=== PATIENT | female | born 1960 | race Caucasian/White ===

== ENCOUNTER 2018-12-25 03:18 | Emergency (ER) | payer OTHER ==
[~2018-12-25] VITALS: Ht 172.7 cm; Wt 108.9 kg
[2018-12-25] MEDS ORDERED: FAMOTIDINE 20 MG/2 ML VIAL IV STA (03:19)
[2018-12-25] MEDS ORDERED: DIPHENHYDRAMINE HCL INJ 50 MG/ML VIAL ONE (03:28)
[2018-12-25] MEDS ORDERED: SODIUM CHLORIDE 0.9% 1000ML 1,000 ML ONE (03:28)
[2018-12-25] MEDS ORDERED: FAMOTIDINE 20 MG/2 ML VIAL IV ONE (03:29)
[2018-12-25] MEDS ORDERED: METHYLPREDNISOLONE SOD SUCC 125 MG/2ML VIAL IV ONE (03:30)
[2018-12-25] MEDS ORDERED: DIPHENHYDRAMINE HCL INJ 50 MG/ML VIAL IV ONE (03:30)
[2018-12-25 03:51] LABS: BASOPHILS % 0.3 % (0.0-1.0); EOSINOPHILS # (AUTO) 0.3 (0.0-0.4); EOSINOPHILS % 2.8 % (0.0-6.0); HEMATOCRIT 42.1 % (34.2-44.1); LYMPHOCYTES # (AUTO) 3.6 (1.0-3.2); LYMPHOCYTES % 30.2 % (18.0-39.1); MEAN CORPUSCULAR HEMOGLOBIN 30.7 pg (28-32); MEAN CORPUSCULAR HGB CONC 33.3 g/dL (31-35); MEAN CORPUSCULAR VOLUME 92.3 fL (81-99); MONOCYTES # (AUTO) 0.8 (0.2-0.8); MONOCYTES % 6.6 % (4.4-11.3); NEUTROPHILS # (AUTO) 7.1 (2.1-6.9); NEUTROPHILS % 59.8 % (38.7-80.0); PLATELET COUNT 294 x10e3/uL (140-360); RED BLOOD COUNT 4.56 x10e6/uL (3.6-5.1); RED CELL DISTRIBUTION WIDTH 12.6 % (11.7-14.4)
[2018-12-25 04:04] LABS: INR 0.84; PARTIAL THROMBOPLASTIN TIME 26.9 seconds (23.8-35.5)
[2018-12-25 04:06] LABS: BACTERIA,URINE MANY /HPF; BILIRUBIN,URINE NEGATIVE (NEGATIVE); CLARITY,URINE CLOUDY (CLEAR); COLOR,URINE YELLOW (YELLOW); EPITHELIAL CELLS,URINE FEW /LPF; KETONES,URINE NEGATIVE (NEGATIVE); LEUKOCYTE ESTERASE ,URINE 2+ (NEGATIVE); NITRITE,URINE NEGATIVE (NEGATIVE); PROTEIN,URINE DIPSTICK NEGATIVE (NEGATIVE); RENAL EPITHELIAL CELLS,URINE FEW; TRANSITIONAL EPI CELLS,URINE FEW; URINE UROBILINOGEN 0.2 mg/dL (0.2 - 1); WBC,URINE (MAN) >50 /HPF (0-5)
[2018-12-25 04:13] LABS: ALANINE AMINOTRANSFERASE 22 IU/L (0-55); ALBUMIN 3.7 g/dL (3.5-5.0); ALBUMIN/GLOBULIN RATIO 1.2 (0.8-2.0); ALKALINE PHOSPHATASE 50 IU/L (40-150); ANION GAP 11.7 mmol/L (8-16); BLOOD UREA NITROGEN 19 mg/dL (7-26); BUN/CREATININE RATIO 23 (6-25); CALCIUM 9.6 mg/dL (8.4-10.2); CARBON DIOXIDE 28 mmol/L (22-29); CHLORIDE 102 mmol/L (98-107); CREATININE, SERUM 0.82 mg/dL (0.57-1.11); EST GLOMERULAR FILTRATION RATE > 60 ML/MIN (60-); GLUCOSE 95 mg/dL (74-118); POTASSIUM 3.7 mmol/L (3.5-5.1); SODIUM 138 mmol/L (136-145)
[2018-12-25] MEDS ORDERED: VASOTEC10 MG PO (04:33)
[2018-12-25] MEDS ORDERED: SODIUM CHLORIDE 0.9% 250ML 250 ML ONE ×2 (05:12→07:26)
--- NOTE | 2018-12-25 05:15 | NUR ---
FIRST UNIT OF FFP STARTED AT THIS TIME, UNIT CHECKED AT BEDSIDE PER HOSPITAL PROTOCOL WITH CHARGE NURSE. PT EDUCATED ON S/S OF TRANSFUSION REACTION. CALL LIGHT WITHIN REACH, ENCOURAGED TO CALL FOR ASSISTANCE.
--- NOTE | 2018-12-25 05:30 | NUR ---
UNIT TRANSFUSING TO LT AC 20G WITH NO S/S TRANSFUSION REACTION. NO SIGNS OF INCREASE IN ORAL SWELLING. WILL CONTINUE TO MONITOR.
--- NOTE | 2018-12-25 06:56 | NUR ---
WALKING ROUNDS DONE WITH JOAQUIN GABRIEL. PT STILL WITHOUT S/S REACTION, OR INCREASE IN SWELLING.
[2018-12-25 07:53] VITALS: BP 116/68
--- NOTE | 2018-12-25 08:00 | NUR ---
pt sitting in chair in room recieving ffp transfusion no adverse reactions noted at this time pt makes no complaints at this time
== END 2018-12-25 09:18 | disposition home or self-care (01) ==
LOC: ER 03:18
DX: T78.3XXA Angioneurotic edema, initial encounter (principal); N30.91 Cystitis, unspecified with hematuria; I10 Essential (primary) hypertension
CPT/HCPCS: 36415; 80053; 81001; 85025; 85610; 85730; 86850; 86900; 93005; 96374; 96375; 99284; J1200; J2930; J7030; J7050; P9017